=== PATIENT | female | born 1995 | race Caucasian/White ===

== ENCOUNTER 2018-08-17 11:53 | Emergency (ER) | payer OTHER ==
[~2018-08-17] VITALS: Ht 160 cm; Wt 84.8 kg
[~2018-08-17 11:53] MED LIST: PREN1TAB17 PO
[2018-08-17 12:05] VITALS: BP 123/63; PULSE 73; RESP 18; Ht 160 cm; Wt 84.8 kg
[2018-08-17] MEDS ORDERED: ACETAMINOPHEN 500 MG TAB PO STA (12:16)
--- NOTE | 2018-08-17 12:32 | ERD ---
ER Documentation Chief Complaint Chief Complaint pelvic pain this morning 8 weeks HPI Patient is a 22-year-old female, approximately 8 weeks , G3, P1, A1, who presents to the ER for concerns of pelvic cramping which started 3 hours ago. Patient describes the pain to be diffuse throughout her lower abdomen. Patient describes the pain to be sharp and crampy in nature. Patient denies any vaginal bleeding. Patient denies any nausea, vomiting, fevers, chills, dysuria, urgency. Patient states that she did have a visit with provider Neha at the [facility] however she has not had an ultrasound yet. Patient states her last menstrual period was 11-6-18. ROS All systems reviewed and are negative except as per history of present illness. Medications Home Meds Active Scripts Acetaminophen* (Tylophen*) 500 Mg Capsule, 1 CAP PO Q6H PRN for PAIN AND OR ELEVATED TEMP, #20 CAP Prov:AYALA ZAVALETA PA-C 08/17/18 Reported Medications Vit-Iron Fumarate-FA ( Tablet) 1 Each Tablet, 1 TAB PO DAILY, TAB 11/23/15 Allergies Allergies: Coded Allergies: No Known Allergies (Unverified Allergy, Unknown, 11/23/15) PMhx/Soc Hx Alcohol Use: No Hx Substance Use: No Hx Tobacco Use: No Smoking Status: Never smoker FmHx Family History: No diabetes Physical Exam Vitals Vital Signs Date Temp Pulse Resp B/P (MAP) Pulse Ox O2 O2 Flow FiO2 Time Delivery Rate 08/17/18 97.4 73 18 123/63 97 12:05 (83) Physical Exam GENERAL: Well-developed, well-nourished female. Appears in no acute distress. HEAD: Normocephalic, atraumatic. EYES: Pupils are equally reactive bilaterally. EOMs grossly intact. No conjunctival erythema. ENT: Moist mucous membranes. No uvula deviation. No kissing tonsils. NECK: Supple. No meningismus. Normal range of motion of the neck. LUNG: Clear to auscultation bilaterally. No rhonchi, wheezing, rales or coarse breath sounds. HEART: Regular rate and rhythm. No murmurs, rubs or gallops. ABDOMEN: Soft. Minimally tender to palpation of the suprapubic region and bilateral pelvic regions... Positive bowel sounds in all four quadrants. No rebound tenderness, no guarding. (-) McBurney's point tenderness. No CVA tenderness. EXTREMITIES: Equal pulses bilaterally. No peripheral clubbing, cyanosis or edema. No unilateral leg swelling. NEUROLOGIC: Alert and oriented. Moving all four extremities without any difficulty. Normal speech. Steady gait. SKIN: Normal color. Warm and dry. No rashes or lesions. Result Diagram: 08/17/18 1234 08/17/18 1234 Results 24 hrs Laboratory Tests Test 08/17/18 12:34 White Blood Count 9.0 10^3/ul Red Blood Count 4.03 10^6/ul Hemoglobin 12.3 g/dl Hematocrit 37.5 % Mean Corpuscular Volume 93.1 fl Mean Corpuscular Hemoglobin 30.5 pg Mean Corpuscular Hemoglobin Concent 32.8 g/dl Red Cell Distribution Width 12.9 % Platelet Count 317 10^3/UL Mean Platelet Volume 9.7 fl Immature Granulocytes % 0.200 % Neutrophils % 70.7 % Lymphocytes % 19.2 % Monocytes % 6.5 % Eosinophils % 3.0 % Basophils % 0.4 % Nucleated Red Blood Cells % 0.0 /100WBC Immature Granulocytes # 0.020 10^3/ul Neutrophils # 6.3 10^3/ul Lymphocytes # 1.7 10^3/ul Monocytes # 0.6 10^3/ul Eosinophils # 0.3 10^3/ul Basophils # 0.0 10^3/ul Nucleated Red Blood Cells # 0.0 10^3/ul Urine Color STRAW Urine Clarity CLEAR Urine pH 6.0 Urine Specific [place] 1.004 Urine Ketones NEGATIVE mg/dL Urine Nitrite NEGATIVE mg/dL Urine Bilirubin NEGATIVE mg/dL Urine Urobilinogen NEGATIVE mg/dL Urine Leukocyte Esterase NEGATIVE Di/ul Urine Hemoglobin NEGATIVE mg/dL Urine Glucose NEGATIVE mg/dL Urine Total Protein NEGATIVE mg/dl Sodium Level 139 mmol/L Potassium Level 4.3 mmol/L Chloride Level 103 mmol/L Carbon Dioxide Level 26 mmol/L Anion Gap 10 Blood Urea Nitrogen 10 mg/dl Creatinine 0.60 mg/dl Est Glomerular Filtrat Rate mL/min > 60 mL/min Glucose Level 94 mg/dl Calcium Level 10.3 mg/dl Total Bilirubin 0.4 mg/dl Direct Bilirubin 0.00 mg/dl Indirect Bilirubin 0.4 mg/dl Aspartate Amino Transf (AST/SGOT) 18 IU/L Alanine Aminotransferase (ALT/SGPT) 16 IU/L Alkaline Phosphatase 90 IU/L Total Protein 8.6 g/dl Albumin 4.4 g/dl Globulin 4.20 g/dl Albumin/Globulin Ratio 1.04 Lipase 62 U/L Beta HCG, Quantitative 51189.0 mIU/ml Current Medications Medications Dose Sig/Adwoa Start Time Status Last (Trade) Ordered Route PRN Stop Time Admin Dose Reason Admin 1,000 mg ONCE STAT 08/17/18 DC 08/17/18 Acetaminophen PO 12:16 08/17/18 12:36 (Tylenol 12:18 Tab) Procedures/MDM ED COURSE: The patient was stable throughout ED course. I kept the patient and/or family informed of laboratory and diagnostic imaging results throughout the ED course. DIAGNOSTIC IMAGING: Read by radiologist. Patient: BRAYDON LAROSE : 1995 Age: 22 Sex: F MR #: [id number] DOS: 08/17/18 1216 Ordering MD: AYALA ZAVALETA PA-C Location: [facility] Room/Bed: PROCEDURE: OB Ultrasound. CLINICAL INDICATION: Positive test. Vaginal bleeding. TECHNIQUE: Ultrasound of the pelvis was performed with transabdominal and transvaginal sonography in the axial and sagittal planes. COMPARISON: No prior study is available for comparison. FINDINGS: There is a single intrauterine gestational sac. Yolk sac is present. pole is visualized. There is heart motion. heart rate is 139 beats per minute. [place]-rump length is 1.41 cm. Mean sac diameter is 2.46 cm. Menstrual age by ultrasound dates is 7 weeks 4 days. This indicates an expected date of delivery of 04/01/2019. The right ovary appears normal measuring 2.8 x 1.9 x 1.9 cm. The left ovary appears normal measuring 2.4 x 1.0 x 1.1 cm. Color Doppler and pulsed Doppler sonography demonstrate normal flow to the ovaries. There is no other pelvic mass or free fluid. IMPRESSION: 1. Single live intrauterine gestation of 7 weeks 4 days menstrual age by ultrasound dates. 2. Expected date of delivery is 04/01/2019. RPTAT: QQ .Bishop Lira MD, MD Date Time Electronically viewed and signed by .Bishop Lira MD, on 08/17/2018 13:23 .R/ CC: AYALA ZAVALETA PA-C MEDICAL DECISION MAKING: Patient is a 22-year-old female, approximately 8 weeks , G3, P1, A0, presents ER for concerns of pelvic cramping times 3 hours.. Vital signs were reviewed. Patient was afebrile. Patient was hemodynamically stable. Urine test was positive[place] [address]. Patient was noted to be a be positive, no indication for RhoGam at this time. CBC showed no evidence of systemic infection or severe anemia. CMP showed no evidence of severe electrolyte abnormalities, acidosis, alkalosis, renal failure or liver injury. Lipase was within normal limits. UA was negative for acute infection or hematuria pelvic ultrasound did show single live intrauterine gestation of 7 weeks and 4 days. Patient was given Tylenol for pain. Upon reexamination, patient reported impro vement pain. Patient is advised to follow-up with an B[facility]RER MACHINE on outpatient basis. Strict ER precautions given. At this time, the patient's presentation most consistent with pelvic pain and . Low suspicion for severe electrolyte abnormalities, DKA, acute abdomen, UTI, pyelonephritis, ectopic , ruptured ectopic , molar , subchorionic hematoma, spontaneous , incomplete , complete , missed , placental abruption, placental previa, vasa previa, uterine rupture, anembyronic . Patient was nontoxic, normal appearing prior to discharge. PRESCRIPTIONS: Tylenol DISCHARGE: At this time, patient is stable for discharge and outpatient management. I had a conversation at length with the patient about the concerns of vaginal bleeding during the 1st trimester of . Patient and/or family understands that her vaginal bleeding can be a normal finding or a sign of miscarriage. I have instructed the patient to follow-up with her OBGYN in 1-2 days for further monitoring. I have instructed the patient to promptly return to the ER at any time for any new or worsening symptoms including increased pain, nausea, vomitin g, continued bleeding, weakness, syncope or fever. The patient and/or family expressed understanding of and agreement with this plan. All questions were answered. Home care instructions were provided. Disclaimer: Inadvertent spelling and grammatical errors are likely due to EHR/dictation software use and do not reflect on the overall quality of patient care. Also, please note that the electronic time recorded on this note does not necessarily reflect the actual time of the patient encounter. Departure Diagnosis: Primary Impression: Pelvic pain affecting Trimester: unspecified trimester Qualified Codes: O26.899 - Other specified related conditions, unspecified trimester; R10.2 - Pelvic and perineal pain Condition: Stable Patient Instructions: Pelvic Pain In : Unclear (2-3 Trimester) Referrals: [facility] YOU HAVE RECEIVED A MEDICAL SCREENING EXAM AND THE RESULTS INDICATE THAT YOU DO NOT HAVE A CONDITION THAT REQUIRES URGENT TREATMENT IN THE EMERGENCY DEPARTMENT. FURTHER EVALUATION AND TREATMENT OF YOUR CONDITION CAN WAIT UNTIL YOU ARE SEEN IN YOUR DOCTORS OFFICE WITHIN THE NEXT 1-2 DAYS. IT IS YOUR RESPONSIBILITY TO MAKE AN APPOINTMENT FOR FOLOW-UP CARE. IF YOU HAVE A PRIMARY DOCTOR --you should call your primary doctor and schedule an appointment IF YOU DO NOT HAVE A PRIMARY DOCTOR YOU CAN CALL OUR PHYSICIAN REFERRAL HOTLINE AT IF YOU CAN NOT AFFORD TO SEE A PHYSICIAN YOU CAN CHOSE FROM THE FOLLOWING [facility] [address] [facility]. [facility] [address] [facility]. [facility] [address] [facility] [address] [facility] [address] [facility]. [facility]. [address] [facility]. [facility] YOU HAVE RECEIVED A MEDICAL SCREENING EXAM AND THE RESULTS INDICATE THAT YOU DO NOT HAVE A CONDITION THAT REQUIRES URGENT TREATMENT IN THE EMERGENCY DEPARTMENT. FURTHER EVALUATION AND TREATMENT OF YOUR CONDITION CAN WAIT UNTIL YOU ARE SEEN IN YOUR DOCTORS OFFICE WITHIN THE NEXT 1-2 DAYS. IT IS YOUR RESPONSIBILITY TO MAKE AN APPOINTMENT FOR FOLOW-UP CARE. IF YOU HAVE A PRIMARY DOCTOR --you should call your primary doctor and schedule and appointment IF YOU DO NOT HAVE A PRIMARY DOCTOR YOU CAN CALL OUR PHYSICIAN REFERRAL HOTLINE AT . IF YOU CAN NOT AFFORD TO SEE A PHYSICIAN YOU CAN CHOSE FROM THE FOLLOWING [facility]: [facility] [address] [place] [address] [facility] [address] [place] [address] [facility] [address] [place] [address] [facility] [employer] [address] [facility] [address] [place] [address] OFFICE FAX , [facility] [address] [place], [place] [id number] [facility] [facility] [address] [place] [address] [address] [facility] [address] [facility], [facility] [address] [address] [address] [place] [address] [facility] [address] [place] [address] [facility] [address] - [address], [facility] [place] [address] [address] [address] [facility]. [address], [facility] [place] [address] [address] [address] [place], [place] [id number] Additional Instructions: Call your primary care doctor/ OBGYN TOMORROW for an appointment during the next 1-2 days.See the doctor sooner or return here if your condition worsens before y our appointment time. Follow-up with your B[facility]RER MACHINE as scheduled. Return here for any new or worsening symptoms including but not limited to vaginal bleeding, worsening pain, nausea, vomiting or lightheadedness. AYALA ZAVALETA PA-C Aug 17, 2018 12:32
[2018-08-17] MEDS ORDERED: ACET500C5 PO (14:00)
== END 2018-08-17 14:06 | disposition home or self-care (01) ==
LOC: FTE 11:53
DX: O26.891 Other specified pregnancy related conditions, first trimester (principal); R10.2 Pelvic and perineal pain; Z3A.08 8 weeks gestation of pregnancy
CPT/HCPCS: 36415; 76801; 76817; 80053; 81003; 83690; 84702; 85025; 86900; 86901; Z7502; Z7610

== ENCOUNTER 2018-10-10 17:40 | Emergency (ER) | payer SELFPAY ==
[~2018-10-10] VITALS: Ht 160 cm; Wt 80.3 kg
[~2018-10-10 17:40] MED LIST changes: +ACET500C5 PO
[2018-10-10 18:03] VITALS: BP 105/62; PULSE 92; RESP 18; Ht 160 cm; Wt 80.3 kg
== END 2018-10-10 21:55 | disposition left against medical advice (07) ==
LOC: FTE 17:40
DX: Z53.21 Procedure and treatment not carried out due to patient leaving prior to being seen by health care provider (principal)

== ENCOUNTER 2019-01-17 15:30 | Inpatient (IN) | payer OTHER ==
[~2019-01-17] VITALS: Ht 160 cm; Wt 93.6 kg
[2019-01-17 15:40] VITALS: Ht 160 cm; Wt 93.6 kg
[2019-01-17 15:41] VITALS: BP 155/82; RESP 16
--- NOTE | 2019-01-17 18:17 | HP ---
Date/Time of Note Date/Time of Note DATE: 01/17/19 TIME: 18:13 OB - History Hx of Present Free Text/Dictation 23-year-old female 3 para 1 was sent from clinic at 29 weeks gestation to rule out -induced hypertension Patient apparently had proteinuria previous week Estimated Due Date: Mar 28, 2019 : 3 Para: 1 Spontaneous : 1 Care: Good Care Ultrasounds: Normal mid trimester US Obstetrical Complications: Pre-eclampsia, Other (-induced hypertension) Medical Complications: None Past Family/Social History * Past Medical, Surgical, Family and Obstetric Histories reviewed from chart. OB Admission Exam Vital Signs Vital Signs Vital Signs Date Temp Pulse Resp B/P (MAP) Pulse Ox O2 O2 Flow FiO2 Time Delivery Rate 01/17/19 98.0 16 155/82 15:41 (106) Physical Exam HEENT: WNL Heart: Rhythm Normal Lungs: Clear, Equal Abdomen: WNL Extremities: Normal Reflexes: Normal Cervical Dilatation: None Effacement: 0% Station: -3 Membranes: Intact Heart Rate: 140's Accelerations: Accelerations Present Decelerations: No Decelerations Contractions on Admission: None Last 72 hours Lab Results CBC & BMP 01/17/19 16:13 Liver Function Test 01/17/19 16:13 Alanine Aminotransferase (ALT/SGPT) 8 L Albumin 3.1 L Alkaline Phosphatase 118 Aspartate Amino Transf (AST/SGOT) 15 Direct Bilirubin 0.00 Total Protein 6.5 OB Assessment/Plan Reason for admission: other (-induced hypertension) Other Assessment: 29+ weeks gestation -induced hypertension Other plan: Continue to observe patient at least for 24 hours Obtain 24-hour urine collection for protein and creatinine clearance Neonatology consultation Start on labetalol LENNY ALLEN MD Jan 17, 2019 18:17
[2019-01-17] MEDS ORDERED: BETAMET NA PHOS/AC(6 MG/ML) 2 ML INJ SYG IM SCH (18:30)
[2019-01-17] MEDS: LACTATED RINGER'S 1,000 ML IV SCH (18:48)
[2019-01-17] MEDS: LABETALOL 200 MG TAB PO SCH (20:02)
[2019-01-17] MEDS: BETAMET NA PHOS/AC(6 MG/ML) 2 ML INJ SYG IM SCH (20:03)
[2019-01-18] MEDS: LACTATED RINGER'S 1,000 ML IV SCH ×3 (02:35→19:00)
[2019-01-18] MEDS: ACETAMINOPHEN 325 MG TAB PO PRN (03:32)
[2019-01-18] MEDS: PRENATAL VITAMIN PO SCH (09:12)
[2019-01-18] MEDS: FERROUS SULFATE (EC) 325 MG TAB PO SCH (09:12)
[2019-01-18] MEDS: LABETALOL 200 MG TAB PO SCH ×2 (09:12→21:03)
[2019-01-18] MEDS ORDERED: FAMOTIDINE 20 MG INJ IV ONE (13:30)
[2019-01-18] MEDS: AL HYDROX/MG HYDROX/SIMETH 30 ML CUP PO PRN (13:56)
--- NOTE | 2019-01-18 18:37 | PN ---
Date/Time of Note Date/Time of Note DATE: 01/18/19 TIME: 18:35 OB Subjective Subjective Subjective Currently does not have major complaints Complaint of headache blurred vision or epigastric pain OB Objective Objective Objective Pressures are stable and vital signs of stable Heart tones appeared reactive Perinatologist visited the patient without notes Recommended to continue to observe patient in hospital for another day OB Assessment/Plan Other Assessment: 29 or 30 weeks gestation -induced hypertension Other plan: Continue to observe in-house until perinatologist cleared the patient for discharge LENNY ALLEN MD Jan 18, 2019 18:37
[2019-01-18] MEDS: BETAMET NA PHOS/AC(6 MG/ML) 2 ML INJ SYG IM SCH (21:03)
--- NOTE | 2019-01-19 01:12 | CONS ---
DATE OF ADMISSION: 01/17/2019 DATE OF CONSULTATION: 01/18/2019 HISTORY OF PRESENT ILLNESS: The patient is a 23-year-old, G3, 1 spontaneous , 1 full-term ba by without complications. Currently, she is at 29 weeks and 4 days, presented secondary to elevated blood pressure. On arrival, she had some severe range of blood pressure. She was placed on labetalo l 200 mg twice a day. Ever since, her blood pressures have been in the normal to moderate range. Stephanie velez has no symptoms. She occasionally has some epigastric pain with radiation to the back which is mos t likely an acid reflux disease and she has been having that for a while. PAST MEDICAL HISTORY: None. OBSTETRICAL HISTORY: Not significant. REVIEW OF SYSTEMS: Systems reviewed all negative. PHYSICAL EXAMINATION: Blood pressure is currently 138/78. Physical exam deferred. heart tone reassuring. No contractions. LABORATORY DATA: Labs are normal for preeclampsia. A 24-hour urine for protein was done about a wee k or two ago, was [address] Higgins has ordered another one. She is going to be over at 8:00 p.m. [facility]. IMPRESSION: Intrauterine at 29 weeks and 4 days with severe preeclampsia given the severe- range blood pressure, stable on labetalol 200 mg twice a day. Labs normal. Epigastric pain is most likely secondary to acid reflux disease. She is being given Pepcid. RECOMMENDATIONS: Monitor inhouse for probably 2 more days to make sure all these are stable. If the epigastric pain does not resolve with Pepcid, I do recommend repeat liver function tests. Continue with the betamethasone. On Tuesday, if patient is stable, we can consider discharging patient home on modified bed rest and preeclampsia precautions which I discussed with her in detail. She needs to have testing twice weekly. The estimated weight is shown to be apparently at less than 10th percentile which is IUGR, and therefore, umbilical artery Doppler should be done at the hospital and since then weekly. Delivery at 34 weeks is recommended unless there is a persistent blood pressure elevation, severe blo od pressures despite medication or nonreassuring heart tone; or neurologic, GI or pulmonary sym ptoms; or platelet count of less than 100,000. Otherwise, at 34 weeks. In addition, 24-hour urine repeat is not necessary; however, I would leave it up to you to continue w ith the collection or not, but please hep-lock her IV after the 24-hour urine is done or when you dec sai to stop the 24-hour urine for protein repeat. Dictated By: CORNELIO BHATIA MD ST/NTS Conf#: [id number] DID#: [id number] CC: LENNY ALLEN MD;*EndCC*
[2019-01-19] MEDS: LACTATED RINGER'S 1,000 ML IV SCH ×3 (02:25→17:10)
[2019-01-19] MEDS: AL HYDROX/MG HYDROX/SIMETH 30 ML CUP PO PRN ×3 (05:26→15:52)
[2019-01-19] MEDS: FERROUS SULFATE (EC) 325 MG TAB PO SCH (08:27)
[2019-01-19] MEDS: LABETALOL 200 MG TAB PO SCH ×2 (08:28→21:02)
[2019-01-19] MEDS: PRENATAL VITAMIN PO SCH (08:28)
[2019-01-19] MEDS: ACETAMINOPHEN 325 MG TAB PO PRN (13:21)
--- NOTE | 2019-01-19 16:07 | PN ---
Date/Time of Note Date/Time of Note DATE: 01/19/19 TIME: 16:05 OB Subjective Subjective Subjective Currently has no complaint of headache blurred vision or epigastric pain OB Objective Objective Objective Patient does not seem in any sort of distress Vital signs are stable as well as blood pressure which is running between 140s over 70s General physical exam is unchanged She has over 10 g of proteinuria and 1 day which is significant worsening comparing to 900 few days before Perinatologist Dr. Perez he recommends in-house observation until delivery OB Assessment/Plan Other Assessment: 30 weeks gestation induced hypertension Extreme proteinuria Other plan: Per perinatologist will continue to observe in-house Continue to check of umbilical cord every to 3 days We will discuss situation with the patient LENNY ALLEN MD Jan 19, 2019 16:07
[2019-01-19] MEDS ORDERED: PRENATAL VITAMIN PO SCH (16:30)
[2019-01-19] MEDS ORDERED: FERROUS SULFATE (EC) 325 MG TAB PO SCH (16:30)
[2019-01-19] MEDS: AL HYDROX/MG HYDROX/SIMETH 30 ML CUP PO SCH (18:38)
[2019-01-19] MEDS ORDERED: FAMOTIDINE 20 MG TAB PO SCH (21:00)
[2019-01-20] MEDS: AL HYDROX/MG HYDROX/SIMETH 30 ML CUP PO SCH (00:13)
[2019-01-20] MEDS: ACETAMINOPHEN 325 MG TAB PO PRN (05:40)
--- NOTE | 2019-01-20 05:44 | CONS ---
DATE OF ADMISSION: 01/17/2019 DATE OF CONSULTATION: 01/18/2019 ADDENDUM: I received a call from Dr. Higgins on 01/19/2019 around 5:00 notifying me that the 24-hour urine protein repeat was 10,000 mg, which is a significant increase since her last 24-hour urine for protein which was 900 mg and that result was recent. Therefore was recommendation is that patient shanti ould be managed in-house with continuous heart tone monitoring as there is a significant change in the 24-hour urine for protein and therefore the risks for the severe preeclampsia and the consequ ences of that would increase; therefore, in-house management is necessary. Their recommendatio ns otherwise stayed the same. Dictated By: CORNELIO BHATIA MD ST/NTS Conf#: [id number] DID#: [id number] CC: LENNY ALLEN MD;*EndCC*
[2019-01-20] MEDS ORDERED: LABETALOL HCL 20MG INJ IV ONE ×2 (06:30→08:00)
--- NOTE | 2019-01-20 07:20 | PN ---
Date/Time of Note Date/Time of Note DATE: 01/20/19 TIME: 07:17 OB Subjective Subjective Subjective c/o headache, OB Objective Heart: Rhythm Normal Abdomen: WNL OB Assessment/Plan Plan: Other (called by RN, noticed elevated BP, IV Labethalol is given) Other plan: Transvere to l@D, start Magnesium, repeat IV Labethaolol as needed NIDHI BRIGHT MD Jan 20, 2019 07:20
[2019-01-20] MEDS ORDERED: MAGNESIUM SULFATE 4 GM/100 ML 100 ML ONE ×2 (07:23→07:39)
[2019-01-20] MEDS ORDERED: AL HYDROX/MG HYDROX/SIMETH 30 ML CUP PO SCH (07:35)
[2019-01-20] MEDS ORDERED: MAGNESIUM SULFATE 4 GM/100 ML 100 ML IVPB ONE (08:00)
[2019-01-20] MEDS ORDERED: OXYTOCIN 30 UNITS/LR 500 ML IV PRN ×2 (08:00→20:00)
[2019-01-20] MEDS ORDERED: MAGNESIUM SULFATE 20 GM/500 ML 500 ML IV SCH (08:00)
[2019-01-20] MEDS ORDERED: MISOPROSTOL 200 MCG TAB PR PRN ×2 (08:00→20:00)
[2019-01-20] MEDS ORDERED: CARBOPROST 250 MCG INJ IM PRN ×2 (08:00→20:00)
[2019-01-20] MEDS ORDERED: METHYLERGONOVINE 0.2 MG INJ IM PRN ×2 (08:00→20:00)
[2019-01-20] MEDS ORDERED: ASPIRIN (EC) 81 MG TAB PO SCH (09:00)
[2019-01-20] MEDS ORDERED: OXYTOCIN 30 UNITS/LR 500 ML IV SCH (11:00)
[2019-01-20] MEDS ORDERED: AZITHROMYCIN 500MG/NS (PMX) 250 ML IV SCH (11:00)
[2019-01-20] MEDS ORDERED: CEFAZOLIN 2 GM/50 ML (PMX) 50 ML IVPB SCH (11:30)
--- NOTE | 2019-01-20 13:01 | PN ---
Date/Time of Note Date/Time of Note DATE: 01/20/19 TIME: 12:59 OB Subjective Subjective Subjective Patient started complaining of not relieving headache OB Objective Objective Objective Blood pressures regardless of antihypertensive therapy is up to 180s over 100 Per on-call physician magnesium sulfate was started and patient received IV labetalol for blood pressure control Meanwhile I contacted the perinatologist who recommended delivery and reconsultation confirmed proceeding with a delivery for diagnosis of severe -induced hypertension OB Assessment/Plan Other Assessment: 29 weeks and 6 days gestation Severe -induced hypertension Growth retarded infant Other plan: Will continue with primary delivery Perinatologist concurred the more of a delivery LENNY ALLEN MD Jan 20, 2019 13:01
[2019-01-20] MEDS ORDERED: CITRIC ACID/NA CITRATE 30 ML CUP PO ONE (13:30)
[2019-01-20] MEDS ORDERED: morphine SULFATE/PF (10 MG/10 ML) INJ ONE (13:49)
[2019-01-20] MEDS ORDERED: CEFAZOLIN 1 GM INJ ONE ×2 (14:09→14:13)
[2019-01-20] MEDS ORDERED: DIPHENHYDRAMINE 50 MG INJ ONE ×2 (14:27→14:28)
[2019-01-20] MEDS ORDERED: MIDAZOLAM 1 MG/ML 2 ML INJ ONE ×3 (14:34)
[2019-01-20] MEDS ORDERED: ONDANSETRON 4 MG INJ ONE (14:36)
[2019-01-20] MEDS ORDERED: FENTAnyl 50 MCG/ML VIAL ONE (14:36)
[2019-01-20] MEDS ORDERED: KETOROLAC 30 MG INJ ONE (15:05)
[2019-01-20] MEDS ORDERED: ACETAMINOPHEN 500 MG TAB PO STA (15:14)
[2019-01-20] MEDS ORDERED: KETOROLAC 30 MG INJ IV STA (15:14)
--- NOTE | 2019-01-20 15:14 | OPR ---
Operative Report Planned Procedure Procedure date Jan 20, 2019 Procedure(s) Primary section Performed by see signature line Breast Surgeon: TONY DHILLON MD Anesthesiologist: DANN GARCIA MD Pre-procedure diagnosis 29 weeks and 6 days gestation Severe -induced hypertension [id number] Anesthesia Type: [id number] spinal Post-Procedure Post-procedure diagnosis Status post Findings Live Baby in OT position Counts amniotic fluid Normal-appearing right and left fallopian tubes and ovaries Low-lying placenta Estimated Blood Loss: 500 - 600 mls Specimen(s) none Grafts/Implant(s) none Complication(s) none Pt Condition post procedure: stable Disposition: PACU Procedure Description Under satisfactory anaesthesia a Pfannenstiel incision was made two fingerb readth above and parallel to the symphysis of pubis. Incision was extended laterally to the border of the Recti muscles on either sides. Incision was carried down with sharp and blunt dissection until fascia was reached. Anterior Recti muscle fascia was incised in mid portion and incision extended laterally to the border of skin incision. Fascia was mobilized from muscle superiorly and Recti muscles were from midline using sharp and blunt dissection. Peritoneum was visualized; Avoiding bowel and bladder it was incised . Incision was extended superiorly and inferiorly. Bladder blade was placed. Posterior peritoneum covering the lower segment of the uterus and lower portion of the body of the uterus was incised. Incision was extended laterally to the border of Round Lig. on either sides and baby was delivered from OP. position . Amniotic fluid appeared clear. Cord blood was obtained and cord had 3 vessels . Placenta was delivered spontaneously and appeared intact and complete. Intrauterine cavity was rubbed with a laparotomy sponge. Uterine incision was closed in 2 layers using running stitches of No1 Monocryl. Hemostasis appeared secure. Ovaries and Fallopian tubes were within normal limits. Announcing needle, lap sponge and instrument count to be correct abdomen was closed in layers as follows: Peritoneum and Recti muscles with running stitches of 2-0 Vicryl. Fascia with r unning stitch of No 1 PDS. Subcutaneous tissue with running stitches of 2-0 Monocryl and skin was closed using jose alberto. Patient tolerated the procedure well and was transferred to [facility] in good condition. LENNY ALLEN MD Jan 20, 2019 15:14
[2019-01-20] MEDS ORDERED: LACTATED RINGER'S 1,000 ML IV ONE (15:26)
--- NOTE | 2019-01-20 15:26 | PREAC ---
Date/Time of Note Date/Time of Note DATE: 01/20/19 TIME: 14:23 Anesthesia Eval and Record Evaluation Time Pre-Procedure Interview DATE: 01/20/19 TIME: 13:27 Age 23 Sex female NPO: 8 hrs Preoperative diagnosis iup @ 30 wks., , contractions, non reassuring status, pih Planned procedure primary c/s Past Medical History Past Medical History: Includes Cardio: HTN : : (3), Para: (1), Gestational age: (30 wks.), PIH Surgery & Anesthesia Issues No known issue Meds Anticoagulation: No Beta Kalee within 24 hr: No Reason Beta Kalee not given: Pt. not on B-Kalee Reported Medications Vit-Iron Fumarate-FA ( Tablet) 1 Each Tablet, 1 TAB PO DAILY, TAB 11/23/15 Discontinued Scripts Acetaminophen* (Tylophen*) 500 Mg Capsule, 1 CAP PO Q6H PRN for PAIN AND OR ELEVATED TEMP, #20 CAP Prov:AYALA ZAVALETA PA-C 08/17/18 Current Medications Prenat Multivit/ [place]/Iron/Folic Ac () 1 tab DAILY PO Last administered on 01/19/19at 08:28; Admin Dose 1 TAB; Start 01/18/19 at 09:00 Ferrous Sulfate (Ferrous Sulfate (Ec)) 325 mg DAILY PO Last administered on 01/19/19at 08:27; Admin Dose 325 MG; Start 01/18/19 at 09:00 Labetalol HCl (Normodyne) 200 mg BID PO Last administered on 01/19/19at 21:02; Admin Dose 200 MG; Start 01/17/19 at 20:00 Acetaminophen (Tylenol Tab) 650 mg Q6H PRN PO MILD PAIN(1-3)OR ELEVATED TEMP Last administered on 01/20/19at 05:40; Admin Dose 650 MG; Start 01/18/19 at 03:30 Famotidine (Pepcid) 20 mg BID PO Last administered on 01/19/19at 21:02; Admin Dose 20 MG; Start 01/19/19 at 21:00 Aspirin (Halfprin) 81 mg DAILY PO ; Start 01/20/19 at 09:00 Al Hydrox/Mg Hydrox/Simethicone (Mag-Al Plus) 30 ml AC MEALS PO Last administered on 01/20/19at 00:13; Admin Dose 30 ML; Start 01/19/19 at 18:30 Oxytocin/Lactated Ringer's 500 ml @ 0 mls/hr ONCE PRN IV .VAGINAL BLEEDING; Start 01/20/19 at 08:00 Methylergonovine Maleate (Methergine) 0.2 mg ONCE PRN IM .VAGINAL BLEEDING; Start 01/20/19 at 08:00 Carboprost Tromethamine (Hemabate) 250 mcg ONCE PRN IM .VAGINAL BLEEDING; Start 01/20/19 at 08:00 Misoprostol (Cytotec) 1,000 mcg ONCE PRN MO .VAGINAL BLEEDING; Start 01/20/19 at 08:00 Magnesium Sulfate 500 ml @ 50 mls/hr Q10H IV Last administered on 01/20/19at 08:18; Admin Dose 50 MLS/HR; Start 01/20/19 at 08:00 Oxytocin/Lactated Ringer's 500 ml @ 125 mls/hr POST IV ; Start 01/20/19 at 11:00 Azithromycin 250 ml @ 250 mls/hr ONCE IV Last administered on 01/20/19at 13:18; Admin Dose 250 MLS/HR; Start 01/20/19 at 11:00 Cefazolin Sodium/ Dextrose 50 ml @ 100 mls/hr ONCE IVPB ; Start 01/20/19 at 11:30 Meds reviewed: Yes Allergies Coded Allergies: No Known Allergies (Unverified Allergy, Unknown, 11/23/15) Allergies Reviewed: Yes Labs/Studies Labs Reviewed: Reviewed by anesthesiologist Result Diagram: 01/20/1992601/20/19926 Laboratory Tests 01/20/19 09:27 Blood Bank Test 01/20/19 09:27 Antibody Screen NEGATIVE Blood Type AB POSITIVE test: Positive Studies: ECG (n/a), CXR (n/a) Pre-procedure Exam Last vitals Vital Signs Date Temp Pulse Resp B/P (MAP) Pulse Ox O2 O2 Flow FiO2 Time Delivery Rate 01/18/19 98.0 04:35 01/17/19 16 155/82 15:41 (106) Airway: Adequate mouth opening, Adequate thyromental dist Mallampati: Mallampati II Teeth: Normal Lung: Normal Heart: Normal ASA Physical Status ASA physical status: 3 Emergency: E Planned Anesthetic General/MAC: MAC Neuraxial: Spinal Planned Pain Management Sub-arachniod narcotics, Local by surgeon Pre-operative Attestations Prior to commencing anesthesia and surgery, the patient was re-evaluated, there was verification of: *The patient's identity *The results of appropriate recent lab work and preoperative vital signs *The above evaluation not changing prior to induction *Anesthetic plan, risk benefits, alternative and complications discussed with patient/family; questions answered; patient/family understands, accepts and wishes to proceed. Line Up Examiner used DANN GARCIA MD Jan 20, 2019 14:34
[2019-01-20] MEDS ORDERED: MIDAZOLAM 1 MG/ML 2 ML INJ IV PRN (15:30)
[2019-01-20] MEDS ORDERED: ONDANSETRON 4 MG INJ IV PRN ×2 (15:30)
[2019-01-20] MEDS ORDERED: DIPHENHYDRAMINE 50 MG INJ IV PRN ×2 (15:30)
[2019-01-20] MEDS ORDERED: hydrALAzine 20 MG INJ IV PRN (15:30)
[2019-01-20] MEDS ORDERED: LORAZEPAM 2 MG INJ IV PRN (15:30)
[2019-01-20] MEDS ORDERED: LABETALOL HCL 20MG INJ IV PRN (15:30)
[2019-01-20] MEDS ORDERED: NALOXONE (0.4 MG/ML) INJ IV PRN (15:30)
[2019-01-20] MEDS ORDERED: HYDROmorphONE 0.5 MG/0.5 ML SYG IV PRN ×2 (15:30)
[2019-01-20] MEDS ORDERED: NALBUPHINE HCL (10 MG/1 ML) INJ IV PRN (15:30)
[2019-01-20] MEDS ORDERED: METOCLOPRAMIDE 10 MG INJ IV PRN (15:30)
[2019-01-20] MEDS ORDERED: MEPERIDINE 25 MG INJ IV PRN (15:30)
[2019-01-20] MEDS ORDERED: KETOROLAC 30 MG INJ IV PRN (15:30)
[2019-01-20] MEDS ORDERED: ZOLPIDEM 5 MG TAB PO PRN (15:30)
[2019-01-20 20:00] VITALS: BP 142/91; PULSE 76; RESP 21
[2019-01-20] MEDS ORDERED: HYDROCODONE/APAP (5/325) TAB PO PRN (20:00)
[2019-01-20] MEDS ORDERED: LANOLIN HPA 1 PKT TOP PRN (20:00)
[2019-01-20] MEDS ORDERED: NA PHOSPHATE/BIPHOS 133 ML ENEMA PR PRN (20:00)
[2019-01-20] MEDS ORDERED: OXYCODONE/ACETAMINOPHEN (5/325) TAB PO PRN (20:00)
[2019-01-20] MEDS: MAGNESIUM SULFATE 20 GM/500 ML 500 ML IV SCH (20:07)
[2019-01-20] MEDS: LACTATED RINGER'S 1,000 ML IV SCH (20:08)
[2019-01-20] MEDS: LABETALOL 200 MG TAB PO SCH (20:33)
[2019-01-20] MEDS: SENNA/DOCUSATE NA (8.6MG/50MG) TAB PO SCH (20:33)
[2019-01-20 21:00] VITALS: BP 142/91; PULSE 69
[2019-01-20] MEDS: CEFAZOLIN 2 GM/50 ML (PMX) 50 ML IVPB SCH (21:41)
[2019-01-20 22:00] VITALS: BP 139/87; PULSE 67; RESP 17
[2019-01-20 23:00] VITALS: BP 138/88; PULSE 88; RESP 19
[2019-01-21] VITALS (12 sets, daily range): BP systolic 122–154; BP diastolic 79–113; PULSE 67–95; RESP 18–21
[2019-01-21] MEDS: CLINDAMYCIN 300 MG CAP PO SCH ×4 (00:02→18:34)
--- NOTE | 2019-01-21 00:09 | PAC ---
Date/Time of Note Date/Time of Note DATE: 01/21/19 TIME: 00:09 Post-Anesthesia Notes Post-Anesthesia Note Last documented vital signs Vital Signs Date Temp Pulse Resp B/P (MAP) Pulse Ox O2 O2 Flow FiO2 Time Delivery Rate 01/21/19 69 21 122/82 97 Mask 00:00 (95) 01/20/19 98.0 20:00 Activity: WNL Respiratory function: WNL Cardiovascular function: WNL Mental status: Baseline Pain reasonably controlled: Yes Hydration appropriate: Yes Nausea/Vomiting absent: Yes DANN GARCIA MD Jan 21, 2019 00:09
[2019-01-21] MEDS: CEFAZOLIN 2 GM/50 ML (PMX) 50 ML IVPB SCH ×2 (04:49→11:47)
--- NOTE | 2019-01-21 06:36 | OPPN ---
Date/Time of Note Date/Time of Note DATE: 01/21/19 TIME: 06:34 Anesthesia Follow up Anesthesia Follow up Last documented vital signs Vital Signs Date Temp Pulse Resp B/P (MAP) Pulse Ox O2 O2 Flow FiO2 Time Delivery Rate 01/21/19 97.9 20 134/85 94 Mask 5.0 02:04 (101) 01/21/19 68 01:03 Respiratory function: WNL Cardiovascular function: WNL Comments S: pt. is pod #1. min. bt pain. min. n/v. min. need for bt pain meds. ie. nsaids/opiates. ambulating. O: vss, afeb. A: min. bt pain sec. to it MSO4. P: no complications. DANN GARCIA MD Jan 21, 2019 06:36
[2019-01-21] MEDS: LABETALOL 200 MG TAB PO SCH ×2 (08:40→21:16)
[2019-01-21] MEDS: SENNA/DOCUSATE NA (8.6MG/50MG) TAB PO SCH ×2 (08:40→21:15)
[2019-01-21] MEDS: ACETAMINOPHEN 325 MG TAB PO PRN (08:55)
[2019-01-21] MEDS: MAGNESIUM SULFATE 20 GM/500 ML 500 ML IV SCH (10:17)
[2019-01-21] MEDS ORDERED: BISACODYL 10 MG SUPP PR ONE (11:30)
--- NOTE | 2019-01-21 15:39 | PN ---
Date/Time of Note Date/Time of Note DATE: 01/21/19 TIME: 15:37 Assessment/Plan VTE Prophylaxis VTE Prophylaxis Intervention: ambulation Lines/Catheters IV Catheter Type (from Nrsg): Peripheral IV Assessment/Plan Assessment/Plan Status post postop day #1 Severe -induced hypertension Patient had episode of hypoxemia which spontaneously resolved Will continue 10 you to ambulate patient and advance diet Rapid recovery is anticipated Subjective 24 Hr Interval Summary No bowel movement but passing flatus Constitutional: no complaints, improved, ambulates, BM, flatus, urine output Pain Control: well controlled Exam/Review of Systems Vital Signs Vitals Vital Signs Date Temp Pulse Resp B/P (MAP) Pulse Ox O2 O2 Flow FiO2 Time Delivery Rate 01/21/19 97.5 73 20 145/95 94 Room Air 15:03 (112) 01/21/19 5.0 08:45 Intake and Output 01/20/19 01/20/19 01/21/19 1515:00 23:00 07:00 IntakeIntake Total 650 ml 775 ml OutputOutput Total 300 ml 544 ml 700 ml BalanceBalance -300 ml 106 ml 75 ml Exam Free Text/Dictation Abdomen is soft with present bowel sounds and abdomen is not distended Appears tender around incision and incision is covered Constitutional: alert, oriented, well developed Psych: no complaints, nl mood/affect Head: normocephalic, atraumatic Eyes: nl conjunctiva, EOMI, nl lids, nl sclera ENMT: nl external ears & nose, nl lips & teeth, nl nasal mucosa & septum, mucosa pink and moist Neck: supple, non-tender Respiratory: clear to auscultation, normal air movement Cardiovascular: regular rate and rhythm, nl pulses Gastrointestinal: soft, nl liver, spleen, non-tender Musculoskeletal: nl extremities to inspection, nl gait and stance Extremities: normal pulses Neurological: MATE FOURTH II-XII intact, nl mental status, nl speech, nl strength Skin: nl turgor, rash or lesions Lymph: nl lymph nodes Results Result Diagram: 01/21/19 0551 01/21/19 0551 LENNY ALLEN MD Jan 21, 2019 15:39
[2019-01-21] MEDS: LACTATED RINGER'S 1,000 ML IV SCH (17:34)
[2019-01-21] MEDS: IBUPROFEN 800 MG TAB PO SCH ×2 (19:00→21:59)
[2019-01-22] VITALS (7 sets, daily range): BP systolic 131–140; BP diastolic 79–93; PULSE 78–86; RESP 16–19
[2019-01-22] MEDS: CLINDAMYCIN 300 MG CAP PO SCH ×4 (00:06→18:06)
[2019-01-22] MEDS: IBUPROFEN 800 MG TAB PO SCH ×3 (05:51→22:07)
[2019-01-22] MEDS: SENNA/DOCUSATE NA (8.6MG/50MG) TAB PO SCH ×2 (09:35→22:07)
[2019-01-22] MEDS: LABETALOL 200 MG TAB PO SCH ×2 (09:35→21:17)
[2019-01-22] MEDS: ACETAMINOPHEN 325 MG TAB PO PRN ×2 (09:47→16:24)
[2019-01-22] MEDS ORDERED: BISACODYL 10 MG SUPP PR ONE (12:30)
[2019-01-22] MEDS ORDERED: ACETAMINOPHEN 325 MG TAB PO PRN (19:30)
--- NOTE | 2019-01-22 19:30 | DS ---
Date/Time of Note Date/Time of Note Home today or next day DATE: 01/22/19 TIME: 19:29 Obstetrical Discharge Record Final Diagnosis Final Diagnosis: delivered Other Final Diagnosis Status post severe -induced hypertension and section Section Section: Primary Primary Indication Severe -induced hypertension Complications Preg induced Hypertension (Severe) Augmentation: No Induction: No Condition on Discharge Physical Assessment Last Vitals: Blood pressure remains stable and vital signs appear within normal limits Voiding: Yes Bowel Movement: Yes Breast: Soft, non-tender, Filling Fundus: Firm Abdomen and Incision: Abdomen is soft with firm fundus and present bowel sounds Episiotomy: Incision appears to be healing well without induration and erythema Calf Tenderness: No Patient Condition: Good LENNY ALLEN MD Jan 22, 2019 19:30
--- NOTE | 2019-01-22 19:33 | DS ---
Date/Time of Note Date/Time of Note DATE: 01/22/19 TIME: 19:31 Discharge Summary Admission/Discharge Info Admit Date/Time Jan 17, 2019 at 18:18 Discharge Date/Time 01/22/2019 Discharge Diagnosis Status post Status post severe -induced hypertension Patient Condition: Good Consults He needs neurologist Dr. Perez and Dr. Gudino Procedures Primary section Hx of Present Illness 23-year-old female sent in from clinic for evaluation of blood pressure at 29+ weeks Finally underwent primary section after consultation with perinatolo gist because of severe -induced hypertension Hospital Course Otherwise she had uncomplicated hospitalization course She tolerated diet well was ambulating without problems Discharge home on the third day with good prognosis and condition fully ambulatory on regular diet Patient was also notified for future she would need to have a repeat section because of type of incision in the uterus Home Meds Reported Medications Vit-Iron Fumarate-FA ( Tablet) 1 Each Tablet, 1 TAB PO DAILY, TAB 11/23/15 Discontinued Scripts Acetaminophen* (Tylophen*) 500 Mg Capsule, 1 CAP PO Q6H PRN for PAIN AND OR ELEVATED TEMP, #20 CAP Prov:AYALA ZAVALETA PA-C 08/17/18 Follow-up Plan She was asked to go back to clinic in 2 to 3 days for blood pressure check and staple removal Primary Care Provider Not On Staff Doctor Time spent on discharge: > 30 minutes LENNY ALLEN MD Jan 22, 2019 19:33
--- NOTE | 2019-01-22 19:34 | PD.PPDC ---
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 Provider Information Physician Information 23-year-old female underwent primary section for severe - induced hypertension Diagnosis [id number] Final Diagnosis: Barbd3g Status post Condition [id number] Patient Condition: Mcqds1y Good Diet Bxwhg3Fa Diet: Llgzp2d Resume Regular Diet Activity/Restrictions Rmeeu7Zu Activity: Rlqzz5x May Shower Pbtcv7Wm Restrictions: Cpqdi9t No Exercising No Lifting Nothing in the Vagina [id number] Return to Work or School: [employer] Mar 26, 2019 Wound/Drain Care Instructions [id number] Wound/Drain Care Instructions: Cqhcv6g Keep clean and dry Follow-up Follow-up with Physician: 2, 3, Day/Days (In clinic for staple removal) Return to clinic for [id number] 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
[2019-01-22] MEDS ORDERED: ACET325T33 PO (19:35)
[2019-01-22] MEDS ORDERED: LABE200T25 PO (19:36)
[2019-01-22] MEDS ORDERED: IBUP800T48 PO (19:37)
[2019-01-23] MEDS: CLINDAMYCIN 300 MG CAP PO SCH ×3 (00:01→11:36)
[2019-01-23 04:14] VITALS: BP 138/77; PULSE 72; RESP 18
[2019-01-23] MEDS: IBUPROFEN 800 MG TAB PO SCH ×2 (05:31→14:00)
[2019-01-23 08:00] VITALS: BP 151/103; PULSE 85; RESP 18
[2019-01-23 08:17] VITALS: BP 156/100; PULSE 84; RESP 20
[2019-01-23] MEDS: LABETALOL 200 MG TAB PO SCH (08:18)
[2019-01-23] MEDS ORDERED: MEASLES,MUMPS,RUBELLA VACCINE INJ SC* ONE (09:00)
[2019-01-23] MEDS ORDERED: DIPHTH/TET/ACEL PERTUSS (ADULT) 0.5 ML VIAL IM* ONE (09:00)
[2019-01-23 11:05] VITALS: BP 114/64; PULSE 52; RESP 18
[2019-01-23] MEDS: SENNA/DOCUSATE NA (8.6MG/50MG) TAB PO SCH (11:36)
--- NOTE | 2019-01-24 15:26 | DELSUM ---
Delivery Summary A-C Datetime Report Generated by CPN: 01/24/2019 15:26 DELIVERY PERSONNEL Video Production Engineer: Ruslanunnpema, Phoebe MATERNAL INFORMATION Delivery Anesthesia: Spinal Medications in Delivery: see anesthesia record Delivery QBL (ml): 500 Placenta Cultured: No Maternal Complications: Other Other Maternal Complications: preeclampsia with severe features RN Comments: marian husain rt LABOR SUMMARY EDC: 04/01/2019 00:00 No. Babies in Womb: 1 Attempted: No Labor Anesthesia: None LABOR INFORMATION Reason for Induction: Not Applicable Oxytocin: N/A Group B Beta Strep: Not Done Antibiotics # of Doses: 2 Antibiotics Time of Last Dose: 01/20/2019 14:10 Steroids Given: Full Course Reason Steroids Not Administered: Indication MEMBRANES Membranes Rupture Method: Artificial Rupture of Membranes: 01/20/2019 14:25 Length of Rupture (hr): 0.00 Amniotic Fluid Color: Clear Amniotic Fluid Amount: Moderate Amniotic Fluid Odor: Normal STAGES OF LABOR Stage 3 hr: 0 Stage 3 min: 1 CSECTION DELIVERY Primary Indication: Severe PIH, Unfavor Cervix CSection Urgency: Non Elective CSection Incidence: Primary Labor: No Labor Elective: N/A CSection Incision: Lower Uterine Transverse BABY A INFORMATION Delivery Date/Time: 01/20/2019 14:25 Method of Delivery: Born in Route : No : N/A Forceps: N/A Vacuum Extraction: N/A Shoulder Dystocia : N/A SHOULDER DYSTOCIA BABY A Infant Delivery Date/Time: 01/20/2019 14:25 PRESENTATION/POSITION BABY A Presentation: Cephalic Cephalic Presentation: Vertex Vertex Position: Left Occipital Anterior Breech Presentation: N/A PLACENTA INFORMATION BABY A Placenta Delivery Time : 01/20/2019 14:26 Placenta Method of Delivery: Manual Removal Placenta Status: Delivered SCORES BABY A Heart Rate 1 min: >100 bpm Resp Effort 1 min: Good Cry Reflex Irritability 1 min: Cough/Sneeze/Pulls Away Muscle Tone 1 min: Active Motion Color 1 min: Blue/Pale Resuscitation Effort 1 min: Tactile Stimulation SCORE 1 MIN: 8 Heart Rate 5 min: >100 bpm Resp Effort 5 min: Good Cry Reflex Irritability 5 min: Cough/Sneeze/Pulls Away Muscle Tone 5 min: Active Motion Color 5 min: Body [place], Extremit Blue Resuscitation Effort 5 min: Tactile Stimulation; Oxygen SCORE 5 MIN: 9 INFORMATION BABY A Gestational Age at Delivery: 29.6 Gestational Status: - <34 Weeks Infant Outcome : Liveborn Infant Condition : Stable Sex: Female IDENTIFICATION/MEDS BABY A ID Band Number: [id number] ID Band Location: Right Leg Sensor Applied: No Vitamin K Given : Not Given Erythromycin Given: Not Given WEIGHT/LENGTH BABY A Infant Birthweight (gm): 1130 Infant Weight (lb): 2 Weight (oz): 8 Length (in): 14.00 Length (cm): 35.56 CORD INFORMATION BABY A No. Cord Vessels: 3 Nuchal Cord : N/A Nuchal Cord- Other: 0 True Knot: 0 Cord Blood Taken: Yes Banking/Donate Info: no Suction: Mouth; Nose ASSESSMENT BABY A Infant Complications: Other Physical Findings at Delivery: Within Normal Limits Physical Findings- Other: HEARING DOG TRAINER DR LAMBERT Respirations: Appears Normal Medical Assistant Ob Gyn/ALS Called : Yes Care By: Neymar BANEGAS RN Transferred To: NICU
== END 2019-01-23 15:05 | disposition home or self-care (01) | DRG 788 ==
LOC: OBT 15:30 → L-D 15:31 → OBT 18:18 → L-D 18:18 → PP1 01-18 11:30 → L-D 01-20 08:13 → PP1 01-21 19:40
PROVIDERS: ADMIT Obstetrics & Gynecology; ATTEND Obstetrics & Gynecology
PROC: 3E033VJ Introduction of Other Hormone into Peripheral Vein, Percutaneous Approach (ICD-10-PCS; 2019-01-20)
PROC: 10D00Z1 Extraction of Products of Conception, Low, Open Approach (ICD-10-PCS; principal; 2019-01-20 13:45)
DX: O60.13X0 Preterm labor second trimester with preterm delivery third trimester, not applicable or unspecified (principal); O13.4 Gestational [pregnancy-induced] hypertension without significant proteinuria, complicating childbirth; Z3A.29 29 weeks gestation of pregnancy; Z37.0 Single live birth
CPT/HCPCS: 76815; 76817; 76818; 76820; 80053; 81001; 82575; 83735; 84156; 84560; 85025; 85384; 85610; 85613; 85730; 86038; 86146; 86147; 86255; 86592; 86850; 86900; 86901; 90715; 99464; G0463; J0456; J0690; J0702; J1200; J1885; J2250; J2274; J2405; J2590; J3010; J3475; J7120